=== PATIENT | male | born 1995 | race Native Hawaiian/Other Pacific Islander ===

== ENCOUNTER 2024-03-11 11:02 | Outpatient (CLI) | payer OTHER ==
--- NOTE | 2024-03-11 13:43 | XRAY Report ---
PROCEDURE: Lumbar Spine 2-3V INDICATIONS: STRAIN OF MUSCLE, FASCIA AND TENDON OF LOWER BACK TECHNIQUE: 3 views of the lumbar spine were acquired. COMPARISON: None. FINDINGS: Surgical change: None. Bones: 5 [id number] vertebrae are present. Mild reversal of the lumbar curvature. There is trac e retrolisthesis of L2 on L3, L4 and L5, L5 on S1. Mild disc and foraminal narrowing at L5-S1. No estella tebral body compression fractures. No suspicious bony lesions. Soft tissues: Overlying bowel gas pattern is normal. No suspicious soft tissue calcifications. IMPRESSION: Reversal of the lumbar curvature. Disc and foraminal narrowing most notable at L5-S1. Reviewed by: Arlene Bustos MD on 03/11/2024 1:41 PM PDT Approved by: Arlene Bustos MD on 03/11/2024 1:41 PM PDT Station ID: [id number]
== END 2024-03-11 11:03 | disposition home or self-care (01) ==
LOC: DI.N 11:02
PROVIDERS: ATTEND Family Medicine
DX: M48.07 Spinal stenosis, lumbosacral region (principal)

== ENCOUNTER 2024-04-03 12:45 | Outpatient (CLI) | payer OTHER ==
[~2024-04-03 12:45] MED LIST: GADOTERATE MEGLUMINE 5 MMOL/10 ML VIAL ONE; GADOTERATE MEGLUMINE 7.5 MMOL/15 ML VIAL ONE
[2024-04-03] MEDS: GADOTERATE MEGLUMINE 7.5 MMOL/15 ML VIAL IVP ONE (17:07)
[2024-04-03] MEDS: GADOTERATE MEGLUMINE 5 MMOL/10 ML VIAL IVP ONE (17:08)
--- NOTE | 2024-04-03 19:54 | MRI Report ---
PROCEDURE: Lumbar Spine W/WO INDICATIONS: RADICULOPATHY CONTRAST: Clariscan 24ml TECHNIQUE: Noncontrast sagittal T1 spin echo and T2 fast spin echo, sagittal STIR, axial T1 and T2 fast spin ech o through the lumbar spine. After the administration of contrast, sagittal and axial T1 spin echo wi th fat saturation through the lumbar spine. COMPARISON: Lumbar spine radiographs 03/11/2024. FINDINGS: Image quality: Excellent. Alignment and curvature: There is straightening of the normal lumbar lordosis. Approximately 4 mm gra de 1 retrolisthesis at L5-S1. Marrow: Marrow is of normal overall signal. No acute vertebral body compression fractures. No susp icious marrow enhancement. Spinal cord: Conus medullaris terminates at the L1-2 level. Visualized spinal cord demonstrates nor mal signal, without suspicious enhancement. Paraspinous soft tissues: No paravertebral masses or abnormal enhancement. T12-L1: No significant spinal canal stenosis or neuroforaminal narrowing. L1-L2: No significant spinal canal stenosis or neuroforaminal narrowing. L2-L3: Disc desiccation and minimal circumferential disc bulging, which doesn't result in signific ant spinal canal stenosis or neuroforaminal narrowing. L3-L4: No significant spinal canal stenosis or neuroforaminal narrowing. L4-L5: No significant spinal canal stenosis or neuroforaminal narrowing. L5-S1: Right paracentral disc protrusion versus extrusion with a small amount of disc material exte nding inferior to the disc level along the posterior endplate of S1. Findings result in effacement of the right lateral recess and suspected impingement of the traversing right S1 nerve roots. There is minimal narrowing of the central spinal canal. Mild to moderate bilateral neural foraminal narrowing is noted. IMPRESSION: At L5-S1, right paracentral disc protrusion effaces the right lateral recess and impinges upon the tr aversing right S1 nerve roots. Recommend correlation with neurologic exam findings. Additional mild multilevel degenerative disease as described in the body of the report without high-g rade spinal canal stenosis or high-grade neuroforaminal narrowing at any level. Reviewed by: Sai Rivas MD on 04/03/2024 7:53 PM PDT Approved by: Sai Rivas MD on 04/03/2024 7:53 PM PDT Station ID: [id number]
== END 2024-04-03 12:46 | disposition home or self-care (01) ==
LOC: DI 12:45
PROVIDERS: ATTEND Student in an Organized Health Care Education/Training Program
DX: M51.17 Intervertebral disc disorders with radiculopathy, lumbosacral region (principal); M51.36 Other intervertebral disc degeneration, lumbar region
CPT/HCPCS: 72158; A9575